=== PATIENT | male | born 1975 | race African-American/Black ===

== ENCOUNTER 2019-02-23 11:49 | Emergency (ER) | payer SELFPAY ==
[~2019-02-23] VITALS: Ht 177.8 cm; Wt 117.9 kg
[~2019-02-23 11:49] MED LIST: DIAZ5TAB PO; HYDR-2765 PO; NAPR500T8 PO
--- NOTE | 2019-02-23 12:32 | PHYS DOC ---
Past Medical History Past Medical History: Diabetes-Type II, Hypertension Additional Past Medical Histor: pt off metformin since 01/2019 Past Surgical History: Appendectomy Alcohol Use: Occasionally Drug Use: None Adult General Chief Complaint Chief Complaint: ABDOMINAL PAIN HPI HPI Patient is a 43-year-old male who presents to the emergency department for evaluation. He states for the past 2 days he has had some left-sided abdominal pain. He denies any vomiting, diarrhea, or urinary symptoms. He states he has had chronic intermittent testicular discomfort but is not having any particular general discomfort at this time. He states he has seen his physician for that in the past. He denies any chest pain shortness of breath. He reports a lesion on his scalp, and hair loss, on the top of his scalp for the past 5 months. He states he saw his PCP and took a cream for it, but it did not completely resolve his symptoms. There are no alleviating or exacerbating factors to his symptoms otherwise. Review of Systems Review of Systems Constitutional: Denies fever or chills [] Eyes: Denies change in visual acuity, redness, or eye pain [] HENT: Denies nasal congestion or sore throat [] Respiratory: Denies cough or shortness of breath [] Cardiovascular: The patient denies any shortness of breath, chest pain, palpitations, or orthopnea [] GI: Denies Nausea, vomiting, bloody stools or diarrhea [] : Denies dysuria or hematuria [] Musculoskeletal: Denies back pain or joint pain , groin or flank pain. [] Integument: Denies rash or skin lesions , other than on the scalp as noted.[] Neurologic: Denies headache, focal weakness or sensory changes [] Endocrine: Denies polyuria or polydipsia [] All other systems were reviewed and found to be within normal limits, except as documented in this note. Current Medications Current Medications Current Medications Medications (Trade) Dose Ordered Sig/Precious Start Time Stop Time Status Last Admin Dose Admin Info (CONTRAST GIVEN -- Rx MONITORING) 1 each PRN DAILY PRN 02/23/19 13:00 02/25/19 12:59 Iohexol (Omnipaque 300 Mg/ml) 75 ml 1X ONCE 02/23/19 12:45 02/23/19 12:50 DC 02/23/19 12:56 75 ML Allergies Allergies Allergies Coded Allergies Type Severity Reaction Last Updated Verified No Known Drug Allergies 1/4/17 No Physical Exam Physical Exam PHYSICAL EXAM: CONSTITUTIONAL: Well developed, well nourished HEAD: normocephalic, atraumatic. There is a small area of partial alopecia on the top of the cranium, with a boggy thickened appearance to the skin, consistent with a Kerion. EENT: PERRL, EOMI. Conjunctivae normal color, sclerae non-icteric; moist mucous membranes. NECK: Supple, non-tender; no meningismus. LUNGS: Lungs CTA, breathing even and unlabored. Normal air movement. HEART: Regular rate and rhythm, no murmur CHEST: No deformity; non-tender ABDOMEN: The abdomen is soft, and non-tender, no masses or bruits. EXTREM: Normal ROM; no deformity, no calf tenderness. Normal pulses palpable in all extremities. There is no pedal edema. SKIN: No rash; no diaphoresis NEURO: Alert; normal speech and cognition; CN's grossly intact; strength grossly intact without focal deficit. BACK: No CVA TTP. GENITOURINARY: Normal external genitalia, normal testicles without any tenderness to palpation. Current Patient Data Vital Signs Vital Signs Date Time Temp Pulse Resp B/P (MAP) Pulse Ox O2 Delivery O2 Flow Rate FiO2 02/23/19 11:57 98.7 95 16 159/99 (119) 98 Room Air 98.7 Lab Values Laboratory Tests Test 02/23/19 11:55 02/23/19 12:18 White Blood Count 6.2 x10^3/uL (4.0-11.0) Red Blood Count 5.02 x10^6/uL (4.30-5.70) Hemoglobin 13.9 g/dL (13.0-17.5) Hematocrit 41.2 % (39.0-53.0) Mean Corpuscular Volume 82 fL (79-100) Mean Corpuscular Hemoglobin 28 pg (25-35) Mean Corpuscular Hemoglobin Concent 34 g/dL (31-37) Red Cell Distribution Width 13.2 % (11.5-14.5) Platelet Count 183 x10^3/uL (140-400) Neutrophils (%) (Auto) 71 % (31-73) Lymphocytes (%) (Auto) 20 % (24-48) L Monocytes (%) (Auto) 7 % (0-9) Eosinophils (%) (Auto) 2 % (0-3) Basophils (%) (Auto) 1 % (0-3) Neutrophils # (Auto) 4.4 x10^3/uL (1.8-7.7) Lymphocytes # (Auto) 1.2 x10^3/uL (1.0-4.8) Monocytes # (Auto) 0.4 x10^3/uL (0.0-1.1) Eosinophils # (Auto) 0.1 x10^3/uL (0.0-0.7) Basophils # (Auto) 0.0 x10^3/uL (0.0-0.2) Urine Collection Type Unknown Urine Color Yellow Urine Clarity Clear Urine pH 5.0 Urine Specific [place] 1.025 Urine Protein Negative mg/dL (NEG-TRACE) Urine Glucose (UA) Negative mg/dL (NEG) Urine Ketones (Stick) Negative mg/dL (NEG) Urine Blood Negative (NEG) Urine Nitrite Negative (NEG) Urine Bilirubin Negative (NEG) Urine Urobilinogen Dipstick 0.2 mg/dL (0.2 mg/dL) Urine Leukocyte Esterase Negative (NEG) Urine RBC 3-5 /HPF (0-2) Urine WBC Occ /HPF (0-4) Urine Squamous Epithelial Cells Few /LPF Urine Bacteria 0 /HPF (0-FEW) Urine Hyaline Casts Few /HPF Urine Mucus Marked /LPF Sodium Level 141 mmol/L (136-145) Potassium Level 3.7 mmol/L (3.5-5.1) Chloride Level 101 mmol/L (98-107) Carbon Dioxide Level 31 mmol/L (21-32) Anion Gap 9 (6-14) Blood Urea Nitrogen 15 mg/dL (8-26) Creatinine 1.1 mg/dL (0.7-1.3) Estimated GFR (Cockcroft-Gault) 87.6 BUN/Creatinine Ratio 14 (6-20) Glucose Level 207 mg/dL (70-99) H Calcium Level 9.1 mg/dL (8.5-10.1) Total Bilirubin 0.5 mg/dL (0.2-1.0) Aspartate Amino Transferase (AST) 16 U/L (15-37) Alanine Aminotransferase (ALT) 24 U/L (16-63) Alkaline Phosphatase 127 U/L (46-116) H Total Protein 8.3 g/dL (6.4-8.2) H Albumin 3.9 g/dL (3.4-5.0) Albumin/Globulin Ratio 0.9 (1.0-1.7) L Lipase 84 U/L (73-393) Laboratory Tests 02/23/19 11:55 Laboratory Tests 02/23/19 12:18 EKG EKG Normal sinus rhythm with a normal rate, normal axis, normal intervals, there are no acute ischemic ST/T changes. Radiology/Procedures Radiology/Procedures [PROCEDURE: CT ABD PELV W/ IV CONTRST ONLY CT ABD PELV W/ IV CONTRST ONLY Indication: Left-sided abdominal pain Technique: Postcontrast CT imaging was performed of the abdomen pelvis, multiplanar reconstruction images submitted. No oral contrast was given. One or more of the following individualized dose reduction techniques were utilized for this examination: 1. Automated exposure control 2. Adjustment of the mA and/or kV according to patient size 3. Use of iterative reconstruction technique. Comparison: None Findings: There is no abnormality of the limited visualized lung bases. No focal abnormality is identified of the liver, spleen, pancreas. Gallbladder is present without obvious intraluminal abnormality by CT. There is no adrenal nodularity. Both kidneys enhance, no hydronephrosis. There is 2.7 cm hypodense lesion of the inferior right kidney with density measurements of a cyst about 12 Hounsfield units. Accurate evaluation of bowel is limited without oral contrast. Bowel is not dilated. There is no free fluid or free air. There is no localized inflammatory type change about the bowel. There is questionable visualization of a segment of appendix, no significant pericecal inflammatory type change. There is retained stool greater of the right colon. There is heterogeneous density filling the gastric lumen likely related to residual food matter. There is more advanced degenerative disc disease L5-S1, also disc osteophyte complex at this level. There is moderate right and mild left L5-S1 neural foramina compromise by disc osteophyte complex. IMPRESSION: 1. There is no significant inflammatory type change about the bowel. There is some retained stool in the colon. Stomach is somewhat distended with food matter.] Course & Med Decision Making Course & Med Decision Making Pertinent Labs and Imaging studies reviewed. (See chart for details) [] 2:00 PM: The patient's condition remains stable. I discussed test results with the patient in detail, the need for close follow-up, and return precautions. Dragon Disclaimer Dragon Disclaimer This electronic medical record was generated, in whole or in part, using a voice recognition dictation system. Departure Departure Impression: Primary Impression: Abdominal pain Additional Impression: [place] Disposition: 01 HOME, SELF-CARE Condition: STABLE Patient Instructions: Abdominal Pain, Ringworm - Scalp Additional Instructions: Use the list of primary care providers provided, to help establish a primary care provider appointment for further follow-up. Scripts Griseofulvin,Microsize (GRISEOFULVIN) 500 Mg Tablet 500 MG PO DAILY for 60 Days, #60 TAB Prov: DERICK BRAGA MD 02/23/19 Problem Qualifiers DERICK BRAGA MD Feb 23, 2019 12:32
[2019-02-23 12:34] LABS: BASO % 1 % (0-3); EOS # 0.1 x10^3/uL (0.0-0.7); EOS % 2 % (0-3); HEMATOCRIT 41.2 % (39.0-53.0); HEMOGLOBIN 13.9 g/dL (13.0-17.5); LYMPH # 1.2 x10^3/uL (1.0-4.8); LYMPH % 20 % (24-48); MEAN CORPUSCULAR HEMOGLOBIN 28 pg (25-35); MEAN CORPUSCULAR HGB CONC 34 g/dL (31-37); MEAN CORPUSCULAR VOLUME 82 fL (79-100); MONO # 0.4 x10^3/uL (0.0-1.1); MONO % 7 % (0-9); NEUT # 4.4 x10^3/uL (1.8-7.7); NEUT % 71 % (31-73); PLATELET COUNT 183 x10^3/uL (140-400); RED BLOOD COUNT 5.02 x10^6/uL (4.30-5.70); RED CELL DISTRIBUTION WIDTH 13.2 % (11.5-14.5); WHITE BLOOD COUNT 6.2 x10^3/uL (4.0-11.0)
[2019-02-23 12:37] LABS: BILIRUBIN,URINE NEGATIVE (NEG); CLARITY,URINE CLEAR; COLOR,URINE YELLOW; NITRITE,URINE NEGATIVE (NEG); PROTEIN,URINE NEGATIVE (NEG-TRACE); UROBILINOGEN,URINE 0.2 mg/dL (0.2 mg/dL)
[2019-02-23 12:43] LABS: CALCIUM 9.1 mg/dL (8.5-10.1); CREATININE 1.1 mg/dL (0.7-1.3); GFR 87.6; POTASSIUM 3.7 mmol/L (3.5-5.1)
[2019-02-23 12:44] LABS: HYALINE CASTS, URINE FEW /HPF; SQUAMOUS EPITHELIAL CELL,UR FEW /LPF
[2019-02-23 12:45] LABS: BACTERIA,URINE 0 /HPF (0-FEW); WBC,URINE OCC /HPF (0-4)
[2019-02-23] MEDS ORDERED: IOHEXOL 300 MG/ML 100ML VIAL. IV ONE (12:45)
[2019-02-23 12:49] LABS: ALBUMIN 3.9 g/dL (3.4-5.0); ALBUMIN/GLOBULIN RATIO 0.9 (1.0-1.7); TOTAL BILIRUBIN 0.5 mg/dL (0.2-1.0); TOTAL PROTEIN 8.3 g/dL (6.4-8.2)
[2019-02-23] MEDS ORDERED: CONTRAST GIVEN. MC PRN (13:00)
--- NOTE | 2019-02-23 13:11 | RAD ---
CT ABD PELV W/ IV CONTRST ONLY Indication: Left-sided abdominal pain Technique: Postcontrast CT imaging was performed of the abdomen pelvis, multiplanar reconstruction images submitted. No oral contrast was given. One or more of the following individualized dose reduction techniques were utilized for this examination: 1. Automated exposure control 2. Adjustment of the mA and/or kV according to patient size 3. Use of iterative reconstruction technique. Comparison: None Findings: There is no abnormality of the limited visualized lung bases. No focal abnormality is identified of the liver, spleen, pancreas. Gallbladder is present without obvious intraluminal abnormality by CT. There is no adrenal nodularity. Both kidneys enhance, no hydronephrosis. There is 2.7 cm hypodense lesion of the inferior right kidney with density measurements of a cyst about 12 Hounsfield units. Accurate evaluation of bowel is limited without oral contrast. Bowel is not dilated. There is no free fluid or free air. There is no localized inflammatory type change about the bowel. There is questionable visualization of a segment of appendix, no significant pericecal inflammatory type change. There is retained stool greater of the right colon. There is heterogeneous density filling the gastric lumen likely related to residual food matter. There is more advanced degenerative disc disease L5-S1, also disc osteophyte complex at this level. There is moderate right and mild left L5-S1 neural foramina compromise by disc osteophyte complex. IMPRESSION: 1. There is no significant inflammatory type change about the bowel. There is some retained stool in the colon. Stomach is somewhat distended with food matter. Electronically signed by: Michael Quintero MD (02/23/2019 1:08 PM) [id number]
--- NOTE | 2019-02-23 13:13 | EKG ---
[facility] [address] [place] [address] Test Date: 2019-02-23 Test Time: 12:38:01 Pat Name: DIONNA CAMERONMeraDamion Department: Room: Gender: M Rubber Process Hand: : 1975 Requested By: DERICK BRAGA Order Number: [id number] Reading MD: Measurements Intervals [place] Rate: 86 P: 46 MO: 180 QRS: 32 QRSD: 98 T: 36 QT: 366 QTc: 441 Interpretive Statements SINUS RHYTHM NORMAL ECG RI6.01 Unconfirmed report No previous ECG available for comparison
[2019-02-23] MEDS ORDERED: GRIS500T5 PO (14:01)
[2019-02-23 14:30] VITALS: BP 138/85
== END 2019-02-23 14:58 | disposition home or self-care (01) ==
LOC: ER 11:49
DX: R10.9 Unspecified abdominal pain (principal); B35.0 Tinea barbae and tinea capitis; E11.9 Type 2 diabetes mellitus without complications; I10 Essential (primary) hypertension; Z90.89 Acquired absence of other organs
CPT/HCPCS: 36415; 74177; 80053; 81001; 83690; 85025; 93005; 99285; Q9967